=== PATIENT | male | born 2000 | race Caucasian/White ===

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

== ENCOUNTER 2018-08-07 18:33 | Emergency (ER) | payer OTHER | END 2018-08-07 20:16 | disposition home or self-care (01) | LOC: FTE 18:33 | DX: R42 Dizziness and giddiness (principal); F41.9 Anxiety disorder, unspecified; S16.1XXA Strain of muscle, fascia and tendon at neck level, initial encounter; R40.2412 Glasgow coma scale score 13-15, at arrival to emergency department; W19.XXXA Unspecified fall, initial encounter; Y92.9 Unspecified place or not applicable | CPT/HCPCS: 93005; 99283-25 ==